=== PATIENT | female | born 2000 | race Caucasian/White ===

== ENCOUNTER 2018-07-06 21:20 | Emergency (ER) | payer BC ==
[~2018-07-06] VITALS: Ht 172.7 cm; Wt 118.3 kg
[2018-07-06] MEDS ORDERED: ondansetron/PF 4mg/2ml inj IV ONE (21:45)
[2018-07-06] MEDS ORDERED: morphine 4 MG/ML inj SYRINge IV PRN (21:45)
[2018-07-06] MEDS ORDERED: ketorolac trometh. 30mg/ml inj. IV ONE (21:45)
--- NOTE | 2018-07-06 21:49 | NUR ---
U/S CALLED BACK AND SAID WOULD BE HERE SOON
[2018-07-06 21:52] LABS: CLARITY,URINE SLIGHTLY CLOUDY (Clear); COLOR,URINE YELLOW (Yellow); GLUCOSE, URINE NEGATIVE (Neg); KETONES,URINE NEGATIVE (Neg); LEUKOCYTE ESTERASE ,URINE TRACE (Neg); NITRITES, URINE NEGATIVE (Neg); OCCULT BLOOD,URINE NEGATIVE (Neg); PROTEIN,URINE NEGATIVE (Neg); UROBILINOGEN,URINE 0.2 E.U/dL (0.2-1.0)
[2018-07-06 21:53] LABS: URINE HCG NEGATIVE (NEG)
[2018-07-06 21:58] LABS: BASOPHILS # (AUTO) 0.1 X10'3 (0-0.2); BASOPHILS % (AUTO) 0.7 % (0-1); EOSINOPHILS # (AUTO) 0.4 X10'3 (0-0.9); HEMATOCRIT 41.2 % (35.0-45.0); HEMOGLOBIN 13.8 g/dl (12.0-16.0); LYMPHOCYTES # (AUTO) 3.8 X10'3 (1.1-4.8); LYMPHOCYTES % (AUTO) 31.2 % (21-51); MEAN CORPUSCULAR HEMOGLOBIN 27.6 PG (27.0-31.0); MEAN CORPUSCULAR HGB CONC 33.5 g/dL (33.0-36.5); MEAN CORPUSCULAR VOLUME 82.5 FL (78-98); MEAN PLATELET VOLUME 8.5 FL (7.4-10.4); MONOCYTES # (AUTO) 0.8 X10'3 (0-0.9); MONOCYTES % (AUTO) 6.5 % (2-12); NEUTROPHILS # (AUTO) 7.2 X10'3 (1.8-7.7); NEUTROPHILS % (AUTO) 58.6 % (42-75); PLATELET COUNT 389 X10'3 (140-440); RED CELL DISTRIBUTION WIDTH 13.2 % (11.5-14.5); WHITE BLOOD COUNT 12.3 X10'3 (4.5-11.0)
[2018-07-06 22:03] LABS: BACTERIA,URINE 1+ /HPF (Neg); RBC,URINE NONE SEEN /HPF (0-2); SQUAMOUS EPITHELIAL CELL,UR MODERATE /LPF (FEW); UA COLLECTION TYPE CLN CATCH MIDSTREAM; WBC,URINE 0-4 /HPF (0-4)
[2018-07-06 22:13] LABS: ALANINE AMINOTRANSFERASE 68 U/L (12-78); ALKALINE PHOSPHATASE 136 IU/L (20-180); ANION GAP 11 (8-16); ASPARTATE AMINO TRANSFERASE 31 U/L (10-37); BILIRUBIN,TOTAL 0.1 MG/DL (0.1-1.0); BLOOD UREA NITROGEN 10 MG/DL (7-18); BUN/CREATININE RATIO 14.7 (6.6-38.0); CALCIUM 10.2 MG/DL (8.5-10.1); CHLORIDE 105 MMOL/L (99-107); CREATININE 0.68 MG/DL (0.40-0.90); GLUCOSE 88 MG/DL (70-104); LIPASE 179 U/L (73-393); POTASSIUM 3.9 MMOL/L (3.5-5.1); SODIUM 141 MMOL/L (135-145); TOTAL CARBON DIOXIDE 25.2 MMOL/L (24-32); TOTAL PROTEIN 8.2 G/DL (6.4-8.2); eGFR > 90 ML/MIN
[2018-07-06 22:28] LABS: INR 0.9 INR; PROTHROMBIN TIME 9.6 SECONDS (9.0-12.0)
[2018-07-06] MEDS ORDERED: ONDA4TAB6 PO (22:52)
[2018-07-06] MEDS ORDERED: KETO10TA2 PO (22:52)
[2018-07-06 23:23] VITALS: BP 118/73
== END 2018-07-06 23:25 | disposition home or self-care (01) ==
LOC: ER 21:20
DX: N83.202 Unspecified ovarian cyst, left side (principal)
CPT/HCPCS: 36415; 76830; 76856; 80053; 81001; 81025; 83690; 85025; 85610; 87088; 96374; 96375; 99284; J1885; J2270; J2405

== ENCOUNTER 2018-07-12 18:07 | Emergency (ER) | payer BC ==
[~2018-07-12] VITALS: Ht 172.7 cm; Wt 113.6 kg
[~2018-07-12 18:07] MED LIST: KETO10TA2 PO; ONDA4TAB6 PO
[2018-07-12 21:52] VITALS: BP 133/66
[2018-07-12] MEDS ORDERED: magnesium citrate 296ml oral solution PO ONE (22:20)
[2018-07-12] MEDS ORDERED: acetaminophen 325mg tablet PO ONE (22:20)
[2018-07-12] MEDS ORDERED: LORazepam 1 MG tablet PO ONE (22:20)
[2018-07-12 23:11] LABS: BASOPHILS # (AUTO) 0.1 X10'3 (0-0.2); BASOPHILS % (AUTO) 0.5 % (0-1); EOSINOPHILS # (AUTO) 0.2 X10'3 (0-0.9); EOSINOPHILS % (AUTO) 1.4 % (0-6); HEMATOCRIT 38.9 % (35.0-45.0); HEMOGLOBIN 13.2 g/dl (12.0-16.0); LYMPHOCYTES # (AUTO) 2.5 X10'3 (1.1-4.8); MEAN CORPUSCULAR HEMOGLOBIN 28.1 PG (27.0-31.0); MEAN CORPUSCULAR HGB CONC 33.9 g/dL (33.0-36.5); MEAN CORPUSCULAR VOLUME 82.9 FL (78-98); MEAN PLATELET VOLUME 8.6 FL (7.4-10.4); MONOCYTES # (AUTO) 0.7 X10'3 (0-0.9); MONOCYTES % (AUTO) 6.8 % (2-12); NEUTROPHILS # (AUTO) 7.4 X10'3 (1.8-7.7); NEUTROPHILS % (AUTO) 68.3 % (42-75); PLATELET COUNT 373 X10'3 (140-440); RED CELL DISTRIBUTION WIDTH 13.6 % (11.5-14.5); WHITE BLOOD COUNT 10.9 X10'3 (4.5-11.0)
[2018-07-12 23:18] LABS: URINE HCG NEGATIVE (NEG)
[2018-07-12 23:29] LABS: CLARITY,URINE CLOUDY (Clear); COLOR,URINE YELLOW (Yellow); GLUCOSE, URINE NEGATIVE (Neg); KETONES,URINE NEGATIVE (Neg); LEUKOCYTE ESTERASE ,URINE NEGATIVE (Neg); NITRITES, URINE NEGATIVE (Neg); OCCULT BLOOD,URINE MODERATE (Neg); PROTEIN,URINE NEGATIVE (Neg); UROBILINOGEN,URINE 0.2 E.U/dL (0.2-1.0)
[2018-07-12 23:45] LABS: UA COLLECTION TYPE CLN CATCH MIDSTREAM
[2018-07-12 23:48] LABS: WBC,URINE 0-4 /HPF (0-4)
[2018-07-12 23:49] LABS: BACTERIA,URINE 3+ /HPF (Neg); MUCUS STRANDS MANY /LPF (Neg); SQUAMOUS EPITHELIAL CELL,UR MANY /LPF (FEW)
--- NOTE | 2018-07-13 00:01 | NUR ---
PT AMBULATORY TO RESTROOM
[2018-07-13] MEDS ORDERED: MAGN296S68 CORPAK (00:13)
[2018-07-13] MEDS ORDERED: POLY17PO10 PO (00:13)
== END 2018-07-13 00:43 | disposition home or self-care (01) ==
LOC: ER 18:08
DX: K59.00 Constipation, unspecified (principal); R10.84 Generalized abdominal pain; R10.31 Right lower quadrant pain; Z79.899 Other long term (current) drug therapy
CPT/HCPCS: 36415; 81001; 81025; 85025; 99284

== ENCOUNTER 2018-09-11 20:13 | Emergency (ER) | payer BC ==
[~2018-09-11] VITALS: Ht 172.7 cm; Wt 115.5 kg
[~2018-09-11 20:13] MED LIST changes: +MAGN296S68 CORPAK
[2018-09-11 21:00] LABS: BASOPHILS # (AUTO) 0.1 X10'3 (0-0.2); BASOPHILS % (AUTO) 0.6 % (0-1); EOSINOPHILS # (AUTO) 0.4 X10'3 (0-0.9); HEMATOCRIT 43.9 % (35.0-45.0); HEMOGLOBIN 14.9 g/dl (12.0-16.0); LYMPHOCYTES # (AUTO) 3.1 X10'3 (1.1-4.8); LYMPHOCYTES % (AUTO) 26.4 % (21-51); MEAN CORPUSCULAR HEMOGLOBIN 28.5 PG (27.0-31.0); MEAN CORPUSCULAR HGB CONC 33.8 g/dL (33.0-36.5); MEAN CORPUSCULAR VOLUME 84.3 FL (78-98); MEAN PLATELET VOLUME 8.5 FL (7.4-10.4); MONOCYTES # (AUTO) 0.7 X10'3 (0-0.9); MONOCYTES % (AUTO) 5.9 % (2-12); NEUTROPHILS # (AUTO) 7.5 X10'3 (1.8-7.7); NEUTROPHILS % (AUTO) 64.1 % (42-75); PLATELET COUNT 441 X10'3 (140-440); RED BLOOD COUNT 5.21 X10'6 (4.20-5.60); RED CELL DISTRIBUTION WIDTH 13.2 % (11.5-14.5); WHITE BLOOD COUNT 11.7 X10'3 (4.5-11.0)
[2018-09-11 21:17] LABS: ALANINE AMINOTRANSFERASE 117 U/L (12-78); ALBUMIN/GLOBULIN RATIO 0.8 (1.1-1.5); ALKALINE PHOSPHATASE 111 IU/L (20-180); ANION GAP 13 (8-16); ASPARTATE AMINO TRANSFERASE 69 U/L (10-37); BILIRUBIN,TOTAL 0.3 MG/DL (0.1-1.0); BLOOD UREA NITROGEN 11 MG/DL (7-18); BUN/CREATININE RATIO 15.3 (6.6-38.0); CALCIUM 10.2 MG/DL (8.5-10.1); CHLORIDE 102 MMOL/L (99-107); CREATININE 0.72 MG/DL (0.40-0.90); GLUCOSE 80 MG/DL (70-104); POTASSIUM 3.6 MMOL/L (3.5-5.1); SODIUM 139 MMOL/L (135-145); TOTAL CARBON DIOXIDE 23.7 MMOL/L (24-32); TOTAL PROTEIN 8.8 G/DL (6.4-8.2); eGFR > 90 ML/MIN
--- NOTE | 2018-09-11 21:26 | NUR ---
PT WAS SEEN BY ERLIN GARRISON ON AND DX'S WITH "STOMACH BUG" PT WAS NOT DC'D WITH ANY RX.
[2018-09-11] MEDS ORDERED: ondansetron 4mg rapidly disintigrating tab PO ONE (21:35)
[2018-09-11 22:04] LABS: CLARITY,URINE CLOUDY (Clear); GLUCOSE, URINE NEGATIVE (Neg); KETONES,URINE >=80 mg/dl (Neg); LEUKOCYTE ESTERASE ,URINE NEGATIVE (Neg); NITRITES, URINE NEGATIVE (Neg); OCCULT BLOOD,URINE LARGE (Neg); PROTEIN,URINE 30 mg/dl (Neg)
[2018-09-11 22:05] LABS: URINE HCG NEGATIVE (NEG)
[2018-09-11 22:06] LABS: UA COLLECTION TYPE CLN CATCH MIDSTREAM
[2018-09-11 22:07] LABS: COLOR,URINE DARK YELLOW (Yellow)
[2018-09-11 22:11] LABS: BACTERIA,URINE 3+ /HPF (Neg); MUCUS STRANDS MANY /LPF (Neg); SQUAMOUS EPITHELIAL CELL,UR MANY /LPF (FEW); WBC,URINE 0-4 /HPF (0-4)
[2018-09-11] MEDS ORDERED: proCHLORperazine 10 MG/2 ml inj IM ONE (22:40)
[2018-09-11] MEDS ORDERED: PHE12.5T PO (23:26)
[2018-09-11 23:39] VITALS: BP 124/85
== END 2018-09-11 23:43 | disposition home or self-care (01) ==
LOC: ER 20:14
DX: R11.2 Nausea with vomiting, unspecified (principal); R10.13 Epigastric pain; Z79.899 Other long term (current) drug therapy
CPT/HCPCS: 36415; 80053; 81001; 81025; 85025; 85610; 96372; 99283; J0780

== ENCOUNTER 2019-02-11 11:29 | Emergency (ER) | payer BC ==
[~2019-02-11] VITALS: Ht 172.7 cm; Wt 117.8 kg
[~2019-02-11 11:29] MED LIST changes: +PROM12.512 PO
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
[2019-02-11 13:31] LABS: BASOPHILS # (AUTO) 0.1 X10'3 (0-0.2); BASOPHILS % (AUTO) 0.7 % (0-1); EOSINOPHILS # (AUTO) 0.2 X10'3 (0-0.9); HEMATOCRIT 39.9 % (35.0-45.0); HEMOGLOBIN 13.5 g/dl (12.0-16.0); LYMPHOCYTES # (AUTO) 2.8 X10'3 (1.1-4.8); LYMPHOCYTES % (AUTO) 28.8 % (21-51); MEAN CORPUSCULAR HEMOGLOBIN 28.3 PG (27.0-31.0); MEAN CORPUSCULAR HGB CONC 33.9 g/dL (33.0-36.5); MEAN CORPUSCULAR VOLUME 83.7 FL (78-98); MEAN PLATELET VOLUME 8.4 FL (7.4-10.4); MONOCYTES # (AUTO) 0.6 X10'3 (0-0.9); MONOCYTES % (AUTO) 5.8 % (2-12); NEUTROPHILS # (AUTO) 6.2 X10'3 (1.8-7.7); NEUTROPHILS % (AUTO) 62.7 % (42-75); PLATELET COUNT 372 X10'3 (140-440); RED BLOOD COUNT 4.77 X10'6 (4.20-5.60); RED CELL DISTRIBUTION WIDTH 13.6 % (11.5-14.5); WHITE BLOOD COUNT 9.9 X10'3 (4.5-11.0)
[2019-02-11 13:44] LABS: ALANINE AMINOTRANSFERASE 98 U/L (12-78); ALBUMIN 3.8 G/DL (3.4-5.0); ALBUMIN/GLOBULIN RATIO 0.8 (1.1-1.5); ALKALINE PHOSPHATASE 108 IU/L (20-180); ANION GAP 12 (8-16); ASPARTATE AMINO TRANSFERASE 93 U/L (10-37); BILIRUBIN,TOTAL 0.2 MG/DL (0.1-1.0); BLOOD UREA NITROGEN 10 MG/DL (7-18); BUN/CREATININE RATIO 15.2 (6.6-38.0); CALCIUM 9.7 MG/DL (8.5-10.1); CHLORIDE 106 MMOL/L (99-107); CREATININE 0.66 MG/DL (0.40-0.90); GLUCOSE 101 MG/DL (70-104); POTASSIUM 4.1 MMOL/L (3.5-5.1); SODIUM 142 MMOL/L (135-145); TOTAL CARBON DIOXIDE 24.1 MMOL/L (24-32); TOTAL PROTEIN 8.4 G/DL (6.4-8.2); eGFR > 90 ML/MIN
[2019-02-11 13:53] LABS: ETHANOL < 0.010 GM/DL (0.0-0.010)
[2019-02-11 13:58] LABS: UA COLLECTION TYPE CLN CATCH MIDSTREAM
[2019-02-11 13:59] LABS: CLARITY,URINE BLOODY (Clear); COLOR,URINE RED (Yellow)
[2019-02-11 14:02] LABS: URINE HCG NEGATIVE (NEG)
[2019-02-11 14:11] LABS: RBC,URINE TNTC /HPF (0-2)
[2019-02-11 14:12] LABS: BACTERIA,URINE 2+ /HPF (Neg); MUCUS STRANDS FEW /LPF (Neg); SQUAMOUS EPITHELIAL CELL,UR MODERATE /LPF (FEW)
[2019-02-11 14:16] LABS: URINE AMPHETAMINE SCREEN NEGATIVE (Neg); URINE BARBITUATE SCREEN NEGATIVE (Neg); URINE BENZODIAZEPINES SCREEN NEGATIVE (Neg); URINE CANNABINOID SCREEN NEGATIVE (Neg); URINE COCAINE SCREEN NEGATIVE (Neg); URINE METHADONE SCREEN NEGATIVE (Neg); URINE OPIATE SCREEN NEGATIVE (Neg); URINE PHENCYCLIDINE SCREEN NEGATIVE (Neg)
[2019-02-11] MEDS ORDERED: ESCI5TAB PO (14:25)
--- NOTE | 2019-02-11 14:33 | NUR ---
PT HAS GIVEN PERMISSION FOR HER MOTHER, VELMA AND ARIADNA SAMPSON TO CALL AND RECEIVE STATUS IN FORMATION ON PT. PASSWORD: GOAT
--- NOTE | 2019-02-11 17:09 | NUR ---
MOTHER BROUGHT IN SOME BOOKS FOR PT. PT'S JERMAINECAMILA IS CONCERNED REGARDING PT BEING PLACED AND NOT HAVING ANY MEDICATION AT TIME OF DC TO CARRY HER TO HER FOLLOW-UP APPT. EXPLAINED THAT AT TIME OF DC PT USUALLY GETS AN RX FOR 30 DAYS OF MEDICATION ALONG WITH A F/U APPT WITH A THERAPIST AND A PHYCHIATRIST; ADRIÁN STATED UNDERSTANDING
--- NOTE | 2019-02-11 17:28 | NUR ---
SENT PACKET TO [facility]
[2019-02-11 18:11] VITALS: BP 102/72
--- NOTE | 2019-02-11 20:21 | NUR ---
AFTER [facility] LEAD MET WITH PT, [facility] LEAD CLEARED PT TO GO HOME. PT PLEASED WITH THE DECISION MADE. FIANCE AT BEDSIDE, PROVIDING GOOD EMOTIONAL SUPPORT, AND ENSURING PT WILL MAKE FOLLOW UP APPOINTMENT TOMORROW. PT CREATED GAME PLAN WITH PICKLE PUMPER PRIOR TO CLEARING FOR DC.
[2019-02-12] MEDS ORDERED: ESCITALOPRAM OXALATE 5 MG TABLET PO SCH (08:00)
== END 2019-02-11 20:58 | disposition home or self-care (01) ==
LOC: ER 11:30
DX: F32.9 Major depressive disorder, single episode, unspecified (principal); R74.0 Nonspecific elevation of levels of transaminase and lactic acid dehydrogenase [LDH]; F41.9 Anxiety disorder, unspecified; Z79.899 Other long term (current) drug therapy
CPT/HCPCS: 36415; 80053; 80305; 80320; 81001; 81025; 84443; 85025; 99284